=== PATIENT | male | born 1930 | race Caucasian/White ===

== ENCOUNTER → 2016-12-29 | Outpatient (CLI) | payer MEDICAID, MEDICARE ==
[2016-12-29 10:35] LABS: CH 30.2; CHCM 32.8; HCT 39.8 % (39.0-53.0); HDW 2.89; HGB 12.8 gm/dL (13.0-17.5); MCH 29.7 pg (25.0-35.0); MCHC 32.1 g/dL (31.0-37.0); MCV 92.5 fL (80.0-100.0); Mean Platelet Volume 7.4; RDW 13.7 % (11.5-15.5); WBC 9.7 k/uL (3.8-10.6)
[2016-12-29 10:49] LABS: Appearance,Urine Clear (Clear); Bilirubin,Urine Negative (Negative); Glucose,Urine (UA) Negative (Negative); Ketones,Urine Negative (Negative); Leukocyte Esterase,Urine Negative (Negative); Mucus,Urine Rare /hpf; Nitrite,Urine Negative (Negative); Particle Count 2384; Protein,Urine Negative (Negative); RBC,Urine 17 /hpf (0-5); Specific Gravity,Urine 1.015 (1.001-1.035); UA Billing (MACRO vs. MICRO) MICRO; Urobilinogen,Urine <2.0 mg/dL (<2.0); WBC,Urine 2 /hpf (0-5)
[2016-12-29 10:57] LABS: ALT 25 U/L (21-72); AST 20 U/L (17-59); Alkaline Phosphatase 54 U/L (38-126); Anion Gap 12 mmol/L; Blood Urea Nitrogen 22 mg/dL (9-20); Calcium 10.1 mg/dL (8.4-10.2); Carbon Dioxide 25 mmol/L (22-30); Chloride 104 mmol/L (98-107); Cholesterol 151 mg/dL (<200); Glucose 133 mg/dL (74-99); HDL Cholesterol 34 mg/dL (40-60); Non-African American GFR(MDRD) >60 (>60 ml/min/1.73 sqM); Potassium 4.2 mmol/L (3.5-5.1); Sodium 141 mmol/L (137-145); Total Bilirubin 0.8 mg/dL (0.2-1.3); Total Protein 7.2 g/dL (6.3-8.2); Triglycerides 171 mg/dL (<150)
[2016-12-29 11:28] LABS: Hemoglobin A1C 8.5 % (4.2-6.1)
[2016-12-29 11:30] LABS: Prostate Specific Antigen 0.78 ng/mL (0.00-4.00)
== END | disposition home or self-care (01) ==
LOC: LABWHC1 09:44
PROVIDERS: ATTEND Family Medicine
DX: Z00.00 Encounter for general adult medical examination without abnormal findings (principal)
CPT/HCPCS: 36415; 80053; 80061; 81001; 82306; 83036; 84153; 84443; 85027

== ENCOUNTER → 2016-12-31 | Outpatient (CLI) | payer MEDICAID, MEDICARE ==
[2016-12-31 14:07] LABS: Appearance,Urine Clear (Clear); Bilirubin,Urine Negative (Negative); Glucose,Urine (UA) 1+ (Negative); Ketones,Urine Negative (Negative); Leukocyte Esterase,Urine Negative (Negative); Nitrite,Urine Negative (Negative); Protein,Urine Negative (Negative); Specific Gravity,Urine 1.014 (1.001-1.035); UA Billing (MACRO vs. MICRO) CHEM
== END | disposition home or self-care (01) ==
LOC: LABPRL 13:44
PROVIDERS: ATTEND Family Medicine
DX: R31.9 Hematuria, unspecified (principal)
CPT/HCPCS: 81003

== ENCOUNTER → 2017-01-16 | Outpatient (CLI) | payer MEDICAID, MEDICARE ==
[2017-01-16 15:23] VITALS: BMI 26.4
== END | disposition home or self-care (01) ==
LOC: DBWHC3 12:07
PROVIDERS: ATTEND Family Medicine
DX: E11.65 Type 2 diabetes mellitus with hyperglycemia (principal)
CPT/HCPCS: G0108 ×3

== ENCOUNTER → 2017-03-23 | Outpatient (CLI) | payer MEDICAID, MEDICARE ==
[2017-03-23 13:11] LABS: CH 30.5; CHCM 33.2; HCT 38.8 % (39.0-53.0); HDW 2.72; HGB 12.8 gm/dL (13.0-17.5); MCH 30.4 pg (25.0-35.0); MCHC 32.9 g/dL (31.0-37.0); MCV 92.2 fL (80.0-100.0); Mean Platelet Volume 7.7; RBC 4.21 m/uL (4.30-5.90); RDW 14.6 % (11.5-15.5); WBC 7.2 k/uL (3.8-10.6)
[2017-03-23 13:26] LABS: ALT 22 U/L (21-72); AST 27 U/L (17-59); Anion Gap 9 mmol/L; Blood Urea Nitrogen 27 mg/dL (9-20); Calcium 9.5 mg/dL (8.4-10.2); Carbon Dioxide 25 mmol/L (22-30); Chloride 107 mmol/L (98-107); Cholesterol 150 mg/dL (<200); Glucose 242 mg/dL (74-99); HDL Cholesterol 43 mg/dL (40-60); Non-African American GFR(MDRD) >60 (>60 ml/min/1.73 sqM); Potassium 4.2 mmol/L (3.5-5.1); Sodium 141 mmol/L (137-145); Triglycerides 106 mg/dL (<150)
[2017-03-23 13:53] LABS: Hemoglobin A1C 7.9 % (4.2-6.1)
== END | disposition home or self-care (01) ==
LOC: LABWHC1 12:37
PROVIDERS: ATTEND Family Medicine
DX: Z00.00 Encounter for general adult medical examination without abnormal findings (principal)
CPT/HCPCS: 36415; 80048; 80061; 83036; 84450; 84460; 85027

== ENCOUNTER → 2017-06-26 | Outpatient (CLI) | payer MEDICAID, MEDICARE ==
[2017-06-26 14:49] LABS: ALT 36 U/L (21-72); AST 25 U/L (17-59); Anion Gap 11 mmol/L; Blood Urea Nitrogen 29 mg/dL (9-20); Calcium 9.6 mg/dL (8.4-10.2); Carbon Dioxide 23 mmol/L (22-30); Chloride 107 mmol/L (98-107); Glucose 174 mg/dL (74-99); Non-African American GFR(MDRD) >60 (>60 ml/min/1.73 sqM); Potassium 4.1 mmol/L (3.5-5.1); Sodium 141 mmol/L (137-145)
[2017-06-26 15:14] LABS: CH 31.7; CHCM 33.8; HDW 2.65; HGB 12.2 gm/dL (13.0-17.5); MCH 31.3 pg (25.0-35.0); MCHC 33.1 g/dL (31.0-37.0); MCV 94.4 fL (80.0-100.0); Mean Platelet Volume 8.3; RBC 3.91 m/uL (4.30-5.90); RDW 14.9 % (11.5-15.5); WBC 6.1 k/uL (3.8-10.6)
[2017-06-26 21:06] LABS: Hemoglobin A1C 7.3 % (4.2-6.1)
== END | disposition home or self-care (01) ==
LOC: LABWHC1 13:55
PROVIDERS: ATTEND Family Medicine
DX: E78.5 Hyperlipidemia, unspecified (principal); E11.65 Type 2 diabetes mellitus with hyperglycemia; E55.9 Vitamin D deficiency, unspecified; I10 Essential (primary) hypertension
CPT/HCPCS: 36415; 80048; 82306; 83036; 84450; 84460; 85027

== ENCOUNTER → 2017-07-03 | Outpatient (CLI) | payer MEDICAID, MEDICARE ==
[2017-07-03 10:27] LABS: CH 30.9; CHCM 33.9; HCT 35.4 % (39.0-53.0); HDW 2.72; HGB 12.4 gm/dL (13.0-17.5); MCV 91.5 fL (80.0-100.0); Mean Platelet Volume 7.4; RBC 3.87 m/uL (4.30-5.90); RDW 14.6 % (11.5-15.5); WBC 5.7 k/uL (3.8-10.6)
[2017-07-03 10:35] LABS: Iron 96 ug/dL (49-181)
[2017-07-03 10:44] LABS: Total Iron Binding Capacity 398 ug/dL (261-462)
== END | disposition home or self-care (01) ==
LOC: LABWHC1 09:53
PROVIDERS: ATTEND Family Medicine
DX: E11.65 Type 2 diabetes mellitus with hyperglycemia (principal); E78.5 Hyperlipidemia, unspecified; E55.9 Vitamin D deficiency, unspecified; I10 Essential (primary) hypertension; R89.9 Unspecified abnormal finding in specimens from other organs, systems and tissues
CPT/HCPCS: 36415; 82728; 83540; 83550; 85027

== ENCOUNTER 2017-08-28 22:21 | Emergency (ER) | payer MEDICAID, MEDICARE ==
--- NOTE | 2017-08-28 23:04 | ED ---
Abdominal Pain HPI - General Chief Complaint: Abdominal Pain Stated Complaint: Pain in side down groin Time Seen by Provider: 08/28/17 22:35 Source: patient Mode of arrival: ambulatory Limitations: no limitations - History of Present Illness Initial Comments: 87-year-old male patient presents to emergency department today with complaints of right-sided abdominal pain and right groin pain. She states that the pain started approximately a week ago, states it has been worsening over the last 2- 3 days. He states that the pain is constant. States that it hurts worse after he has been sitting upright for a long period. The pain is similar in intensity from the lower portion of his right ribs down into his groin. He denies any back pain, chest pain, shortness of breath, nausea, vomiting, dysuria , hematuria, urinary urgency, urinary frequency, constipation, or diarrhea. Denies any dark, bloody, or black stools. States that he does have a history significant for a hernia in his right inguinal region. He has not had problems with the site since the surgery. He does have a history of kidney stones. - Related Data Home Medications Medication Instructions Recorded Confirmed Fenofibrate [Lofibra] 160 mg PO HS 10/02/14 08/28/17 Lisinopril-Hctz 10-12.5 mg 1 tab PO DAILY 10/02/14 08/28/17 [Zestoretic 10-12.5] Simvastatin [Zocor] 40 mg PO HS 10/02/14 08/28/17 glyBURIDE/METFORMIN HCL 2 tab PO BID 10/02/14 08/28/17 [glyBURIDE/METFORMIN HCL 5-500 mg] Metoprolol Tartrate [Lopressor] 1 tab PO DAILY 01/16/17 08/28/17 Alfuzosin HCl [Alfuzosin HCl ER] 10 mg PO HS 03/30/17 08/28/17 Aspirin 81 mg PO DAILY 03/30/17 08/28/17 Insulin Glargine,Hum.rec.anlog 22 units SQ DAILY 03/30/17 08/28/17 [[place]ta Solostar] Albuterol Inhaler [Ventolin Hfa 1 - 2 puff INHALATION RT-QID PRN 08/28/17 Inhaler] [place]-3 Fatty Acids/Fish Oil [Fish 1 cap PO BID 08/28/17 08/28/17 Oil 1,000 mg Softgel] Previous Rx's Medication Instructions Recorded Hydrocodone/Acetaminophen [[place] 1 tab PO Q6HR PRN #15 tab 08/29/17 5-325] Tamsulosin HCl [Flomax] 0.4 mg PO DAILY #7 cap 08/29/17 Allergies Allergy/AdvReac Type Severity Reaction Status Date / Time No Known Allergies Allergy Verified 08/28/17 22:58 Review of Systems ROS Statement: Those systems with pertinent positive or pertinent negative responses have been documented in the HPI. ROS Other: All systems not noted in ROS Statement are negative. 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 History of Any Multi-Drug Resistant Organisms: None Reported Past Surgical History: Hernia Repair Past Anesthesia/Blood Transfusion Reactions: No Reported Reaction Past Psychological History: No Psychological Hx Reported Smoking Status: Former smoker - Past Family History Daughter(s) Family Medical History: No Reported History Mother Family Medical History: CVA/TIA Father Family Medical History: Myocardial Infarction ([place]) General Exam Limitations: no limitations General appearance: alert, in no apparent distress, other (This is a well- developed, well-nourished adult male patient in no acute distress. Vital signs upon presentation are temperature 100.1F, pulse 95, respirations 16, blood pressure 150/77, pulse ox 97% on room air.) Eye exam: Present: normal appearance, PERRL, EOMI. Absent: scleral icterus, conjunctival injection, periorbital swelling ENT exam: Present: normal exam, normal oropharynx, mucous membranes moist Respiratory exam: Present: normal lung sounds bilaterally. Absent: respiratory distress, wheezes, rales, rhonchi, stridor Cardiovascular Exam: Present: regular rate, normal rhythm, normal heart sounds. Absent: systolic murmur, diastolic murmur, rubs, gallop, clicks GI/Abdominal exam: Present: soft, normal bowel sounds. Absent: distended, tenderness, guarding, rebound, rigid exam: Present: normal inspection, testicular tenderness (Mild right testicular tenderness). Absent: urethral discharge, scrotal swelling Back exam: Present: normal inspection Neurological exam: Present: alert, oriented X3, CN II-XII intact Psychiatric exam: Present: normal affect, normal mood Skin exam: Present: warm, dry, intact, normal color. Absent: rash Course Vital Signs 08/28/17 08/29/17 08/29/17 22:28 00:14 01:08 Temperature 100.1 F H 97.8 F Pulse Rate 95 82 76 Respiratory 16 18 16 Rate Blood Pressure 150/77 159/77 168/84 O2 Sat by Pulse 97 95 96 Oximetry Medical Decision Making - Medical Decision Making 87-year-old male patient presents with right side pain that radiates into his right groin. Labs reviewed and did show a hemoglobin of 12.5, a BUN of 36, creatinine 1.6. Urinalysis did show trace urine protein, 3+ urine glucose, small blood, 7 red blood cells, rare mucous. Hemoglobin is chronic for the patient. Patient does also have chronic renal insufficiency however creatinine is mildly elevated from his usual. Patient was given a 500 mL fluid bolus. KUB of the abdomen was negative for any acute process. Chest x-ray did show mild right lower lobe infiltrate versus atelectasis. CT of the abdomen and pelvis without contrast did show a millimeter calculus at the ureterovesical junction on the right side, there is mild right-sided hydronephrosis and hydroureter. CT did show right lower lobe atelectasis, but no evidence of right lower lobe consolidation or pneumonia. V/S stable. Patient pain is under control at this time. He will be discharged home with Flomax and [place] for pain control. He is instructed to follow-up with urologist for recheck Thursday. He is instructed to return here immediately for any new, worsening, or concerning symptoms. Return parameters discussed in detail. Patient verbalizes understanding and agrees with this plan. - Lab Data Result diagrams: 08/28/17 23:12 08/28/17 23:12 Lab Results 08/28/17 08/28/17 08/28/17 Range/Units 23:12 23:12 23:12 WBC 7.3 (3.8-10.6) k/uL RBC 4.05 L (4.30-5.90) m/uL Hgb 12.5 L (13.0-17.5) gm/dL Hct 38.5 L (39.0-53.0) % MCV 95.0 (80.0-100.0) fL MCH 30.8 (25.0-35.0) pg MCHC 32.4 (31.0-37.0) g/dL RDW 14.9 (11.5-15.5) % Plt Count 203 (150-450) k/uL Neutrophils % 67 % Lymphocytes % 23 % Monocytes % 6 % Eosinophils % 3 % Basophils % 0 % Neutrophils # 4.9 (1.3-7.7) k/uL Lymphocytes # 1.6 (1.0-4.8) k/uL Monocytes # 0.4 (0-1.0) k/uL Eosinophils # 0.2 (0-0.7) k/uL Basophils # 0.0 (0-0.2) k/uL Sodium 138 (137-145) mmol/L Potassium 4.2 (3.5-5.1) mmol/L Chloride 105 (98-107) mmol/L Carbon Dioxide 22 (22-30) mmol/L Anion Gap 11 mmol/L BUN 36 H (9-20) mg/dL Creatinine 1.60 H (0.66-1.25) mg/dL Est GFR (MDRD) Af Amer 50 (>60 ml/min/1.73 sqM) Est GFR (MDRD) Non-Af 41 (>60 ml/min/1.73 sqM) Glucose 205 H (74-99) mg/dL Plasma Lactic Acid [place] 1.6 (0.7-2.0) mmol/L Calcium 9.9 (8.4-10.2) mg/dL Total Bilirubin 0.5 (0.2-1.3) mg/dL AST 25 (17-59) U/L ALT 29 (21-72) U/L Alkaline Phosphatase 57 (38-126) U/L Total Protein 6.6 (6.3-8.2) g/dL Albumin 3.5 (3.5-5.0) g/dL Amylase 41 (30-110) U/L Lipase 164 (23-300) U/L Urine Color Urine Appearance (Clear) Urine pH (5.0-8.0) Ur Specific [employer] [place] (1.001-1.035) Urine Protein (Negative) Urine Glucose (UA) (Negative) Urine Ketones (Negative) Urine Blood (Negative) Urine Nitrite (Negative) Urine Bilirubin (Negative) Urine Urobilinogen (<2.0) mg/dL Ur Leukocyte Esterase (Negative) Urine RBC (0-5) /hpf Urine WBC (0-5) /hpf Ur Squamous Epith Cells (0-4) /hpf Hyaline Casts (0-2) /lpf Urine Mucus (None) /hpf 08/28/17 Range/Units 23:34 WBC (3.8-10.6) k/uL RBC (4.30-5.90) m/uL Hgb (13.0-17.5) gm/dL Hct (39.0-53.0) % MCV (80.0-100.0) fL MCH (25.0-35.0) pg MCHC (31.0-37.0) g/dL RDW (11.5-15.5) % Plt Count (150-450) k/uL Neutrophils % % Lymphocytes % % Monocytes % % Eosinophils % % Basophils % % Neutrophils # (1.3-7.7) k/uL Lymphocytes # (1.0-4.8) k/uL Monocytes # (0-1.0) k/uL Eosinophils # (0-0.7) k/uL Basophils # (0-0.2) k/uL Sodium (137-145) mmol/L Potassium (3.5-5.1) mmol/L Chloride (98-107) mmol/L Carbon Dioxide (22-30) mmol/L Anion Gap mmol/L BUN (9-20) mg/dL Creatinine (0.66-1.25) mg/dL Est GFR (MDRD) Af Amer (>60 ml/min/1.73 sqM) Est GFR (MDRD) Non-Af (>60 ml/min/1.73 sqM) Glucose (74-99) mg/dL Plasma Lactic Acid [place] (0.7-2.0) mmol/L Calcium (8.4-10.2) mg/dL Total Bilirubin (0.2-1.3) mg/dL AST (17-59) U/L ALT (21-72) U/L Alkaline Phosphatase (38-126) U/L Total Protein (6.3-8.2) g/dL Albumin (3.5-5.0) g/dL Amylase (30-110) U/L Lipase (23-300) U/L Urine Color Yellow Urine Appearance Clear (Clear) Urine pH 7.0 (5.0-8.0) Ur Specific [employer] [place] 1.017 (1.001-1.035) Urine Protein Trace H (Negative) Urine Glucose (UA) 3+ H (Negative) Urine Ketones Negative (Negative) Urine Blood Small H (Negative) Urine Nitrite Negative (Negative) Urine Bilirubin Negative (Negative) Urine Urobilinogen 4.0 (<2.0) mg/dL Ur Leukocyte Esterase Negative (Negative) Urine RBC 7 H (0-5) /hpf Urine WBC 3 (0-5) /hpf Ur Squamous Epith Cells <1 (0-4) /hpf Hyaline Casts 1 (0-2) /lpf Urine Mucus Rare H (None) /hpf 08/29/17 00:26 EKG obtained at 2316 shows sinus rhythm, left axis deviation, incomplete left bundle branch block. Ventricular rate is 85, VT interval 154, QRS duration 114 , QT 366, QTC 435. No evidence of ST elevation or depression. 08/29/17 00:31 - Radiology Data Radiology results: report reviewed, image reviewed CT of the abdomen and pelvis without contrast, report was reviewed in its entirety. Impression by Dr. Oh shows obstructing calculus at the distal right ureter at the uterovesical junction. Right-sided hydronephrosis and hydroureter. Nonobstructing tiny left renal calculus. Mild subsegmental atelectasis at the right lung base and to a lesser extent the lingula left upper lobe. Atherosclerotic vascular disease. 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 There is possible calcific aortic stenosis. Two-view x-ray of the chest shows a heart and mediastinum are normal. There is linear density at the right lung base. There are no hilar masses. There is no evidence of pleural effusion. Bony thorax is intact. Impression by Dr. Ramirez shows mild linear infiltrate and atelectasis at the right lung base that is new compared to old exam. Normal heart. KUB x-ray of the abdomen shows no sign of intestinal obstruction or pneumoperitoneum. Fecal pattern is normal. There is no sign of a mass. There are no pathologic calcifications over the kidneys. There is increased density over the right lung base. Impression by Dr. Oh shows nonacute abdomen. Possible right lower lobe pneumonia. Disposition Clinical Impression: Kidney stone on right side, Hydronephrosis Disposition: HOME SELF-CARE Condition: Good Instructions: Kidney Stones (ED), How to Strain Your Urine (ED) Additional Instructions: Increase fluids. Take medications as directed. Follow-up with urologist as soon as possible. Return here immediately for any new, worsening, or concerning symptoms. Prescriptions: Hydrocodone/Acetaminophen [[place] 5-325] 1 tab PO Q6HR PRN #15 tab PRN Reason: Pain Tamsulosin HCl [Flomax] 0.4 mg PO DAILY #7 cap Referrals: Elgin Herrera DO [Primary Care Provider] - 1-2 days Silas Carlson MD [STAFF PHYSICIAN] - 1-2 days Time of Disposition: 01:13
[2017-08-28 23:28] LABS: Basophils % (A) 0 %; CH 32.3; CHCM 34.2; Eosinophils # (A) 0.2 k/uL (0-0.7); Eosinophils % (A) 3 %; HCT 38.5 % (39.0-53.0); HDW 2.59; HGB 12.5 gm/dL (13.0-17.5); Luc # (Auto) 0.09; Luc % (Auto) 1; Lymphocytes # (A) 1.6 k/uL (1.0-4.8); Lymphocytes % (A) 23 %; MCH 30.8 pg (25.0-35.0); MCHC 32.4 g/dL (31.0-37.0); Mean Platelet Volume 8.1; Monocytes # (A) 0.4 k/uL (0-1.0); Monocytes % (A) 6 %; Neutrophils # (A) 4.9 k/uL (1.3-7.7); Neutrophils % (A) 67 %; RBC 4.05 m/uL (4.30-5.90); RDW 14.9 % (11.5-15.5); WBC 7.3 k/uL (3.8-10.6); WBC (Perox) 7.84
--- NOTE | 2017-08-28 23:36 | XR ---
EXAMINATION TYPE: XR KUB DATE OF EXAM: 08/28/2017 COMPARISON: NONE HISTORY: Pain TECHNIQUE: 2 views FINDINGS: There is no sign of intestinal obstruction or pneumoperitoneum. Fecal pattern is normal. Th ere is no sign of a mass. There are no pathologic calcifications over the kidneys. There is increased density over the right lung base. IMPRESSION: Nonacute abdomen. Possible right lower lobe pneumonia.
[2017-08-28 23:46] LABS: Appearance,Urine Clear (Clear); Bilirubin,Urine Negative (Negative); Glucose,Urine (UA) 3+ (Negative); Ketones,Urine Negative (Negative); Leukocyte Esterase,Urine Negative (Negative); Mucus,Urine Rare /hpf; Nitrite,Urine Negative (Negative); Particle Count 1404; Protein,Urine Trace (Negative); RBC,Urine 7 /hpf (0-5); Specific Gravity,Urine 1.017 (1.001-1.035); Squamous Epithelial Cell,Urine <1 /hpf (0-4); UA Billing (MACRO vs. MICRO) MICRO; WBC,Urine 3 /hpf (0-5)
[2017-08-28 23:55] LABS: Calcium 9.9 mg/dL (8.4-10.2); Potassium 4.2 mmol/L (3.5-5.1); Total Bilirubin 0.5 mg/dL (0.2-1.3); Total Protein 6.6 g/dL (6.3-8.2)
[2017-08-29] MEDS ORDERED: SODIUM CHLORIDE 0.9% 500 ML IV STA (00:10)
--- NOTE | 2017-08-29 00:28 | XR ---
EXAMINATION TYPE: XR chest 2V DATE OF EXAM: 08/29/2017 COMPARISON: 08/11/2015 HISTORY: Chest pain TECHNIQUE: Frontal and lateral views of the chest are obtained. FINDINGS: Heart and mediastinum are normal. There is linear density at the right lung base. There ar e no hilar masses. There is no evidence of pleural effusion. Bony thorax is intact. IMPRESSION: There is mild linear infiltrate and atelectasis at the right lung base that is new ruth ann red to old exam. Normal heart.
--- NOTE | 2017-08-29 00:50 | CT ---
EXAMINATION TYPE: CT abdomen pelvis wo con DATE OF EXAM: 08/29/2017 COMPARISON: NONE HISTORY: right abd into groin pain, hx of hernia surgery, no prior CT DLP: 763.20 mGycm Automated exposure control for dose reduction was used. TECHNIQUE: Helical acquisition of images was performed from the lung bases through the pelvis. FINDINGS: Lung bases are clear of consolidation. There is no pleural effusion. Heart size is fairly normal. The re is coronary artery calcification. There is interposition of the hepatic flexure of the colon which is a normal variant. There is no foc al liver defect. Spleen appears normal. There is no pancreatic mass. Gallbladder appears normal. Bile ducts are not dilated. There is no adrenal mass. Kidneys have fairly normal size. There is mild right-sided hydronephrosis a nd hydroureter. There is a 5 mm calculus at the ureterovesical junction on the right side. There is r ight-sided perinephric edema. There is a 1 mm calculus in the lower pole left kidney. There is no retroperitoneal adenopathy. There is no ascites. Bladder distends smoothly. There is no s ign of a pelvic mass. There are spondylotic changes in the lumbar spine. There are some calcification s at the root of the aortic valve. I see no intestinal wall thickening. There are no dilated loops. There are multiple sigmoid diverticu la. IMPRESSION: THERE IS OBSTRUCTING CALCULUS AT THE DISTAL RIGHT URETER AT THE URETEROVESICAL JUNCTION. RIGHT-SIDED HYDRONEPHROSIS AND HYDROURETER. NONOBSTRUCTING TINY LEFT RENAL CALCULUS. MILD SUBSEGMENTAL ATELECTASIS AT THE RIGHT LUNG BASE AND TO A LESSER EXTENT THE LINGULA LEFT UPPER LO BE. ATHEROSCLEROTIC VASCULAR DISEASE. 4.7 CM ANEURYSM OF THE ASCENDING AORTA NOTED. THERE IS POSSIBLE LOU CIFIC AORTIC STENOSIS.
[2017-08-29 01:08] VITALS: BP 168/84; PULSE 76; RESP 16; TEMP 97.8
[2017-08-29] MEDS ORDERED: ACET/COD 300 MG/30 MG STARTER PACK 6 TAB BTL PO STA (01:10)
[2017-08-29] MEDS ORDERED: TAMSULOSIN 0.4 MG CAP.ER.24H PO STA (01:10)
== END 2017-08-29 01:33 | disposition home or self-care (01) ==
LOC: EC 22:21
DX: N13.2 Hydronephrosis with renal and ureteral calculous obstruction (principal); E11.9 Type 2 diabetes mellitus without complications; I10 Essential (primary) hypertension; E78.5 Hyperlipidemia, unspecified; Z98.890 Other specified postprocedural states; Z79.4 Long term (current) use of insulin; Z79.82 Long term (current) use of aspirin; Z79.899 Other long term (current) drug therapy; Z87.891 Personal history of nicotine dependence
CPT/HCPCS: 36415; 71020; 74000; 74176; 80053; 81001; 82150; 83605; 83690; 85025; 87040; 93005; 96360; 99284

== ENCOUNTER 2017-10-03 19:27 | Emergency (ER) | payer MEDICAID, MEDICARE ==
--- NOTE | 2017-10-03 20:15 | ED ---
General Adult HPI - General Source: patient, family, police, RN notes reviewed, old records reviewed Mode of arrival: ambulatory Limitations: no limitations <Eduardo Ledesma - Last Filed: 10/04/17 01:02> <Radha Rouse - Last Filed: 10/04/17 02:02> - General Chief complaint: Psychiatric Symptoms Stated complaint: Mental Health Time Seen by Provider: 10/03/17 19:50 - History of Present Illness Initial comments: Chief complaint history of present illness this 89-year-old male brought emergency room and petition by the Quality Assurance Monitor [employer]. The patient was noticed walking down a dark road. He had fallen once was helped up by some passerby. [facility]' s Department was called. The Quality Assurance Monitor Chassis states he found the gentleman walking down the street without going in any particular direction. He is 87 years old he is a 62-year-old told him to get out of the house. The patient reports he had no place to go but is been walking until he . (Eduardo Ledesma) - Related Data Home Medications Medication Instructions Recorded Confirmed Fenofibrate [Lofibra] 160 mg PO HS 10/02/14 10/03/17 Lisinopril-Hctz 10-12.5 mg 1 tab PO DAILY 10/02/14 10/03/17 [Zestoretic 10-12.5] Simvastatin [Zocor] 40 mg PO HS 10/02/14 10/03/17 glyBURIDE/METFORMIN HCL 2 tab PO BID 10/02/14 10/03/17 [glyBURIDE/METFORMIN HCL 5-500 mg] Metoprolol Tartrate [Lopressor] 25 mg PO BID 01/16/17 10/03/17 Alfuzosin HCl [Alfuzosin HCl ER] 10 mg PO HS 03/30/17 10/03/17 Aspirin 81 mg PO DAILY 03/30/17 10/03/17 Insulin Glargine,Hum.rec.anlog 11 units SQ DAILY 03/30/17 10/03/17 [[place] Solostar] Albuterol Inhaler [Ventolin Hfa 1 - 2 puff INHALATION RT-QID PRN 08/28/17 Inhaler] [place]-3 Fatty Acids/Fish Oil [Fish 1 cap PO BID 08/28/17 10/03/17 Oil 1,000 mg Softgel] Previous Rx's Medication Instructions Recorded Tamsulosin HCl [Flomax] 0.4 mg PO DAILY #7 cap 08/29/17 Allergies Allergy/AdvReac Type Severity Reaction Status Date / Time No Known Allergies Allergy Verified 10/03/17 19:41 Review of Systems ROS Other: All systems not noted in ROS Statement are negative. <Eduardo Ledesma - Last Filed: 10/04/17 01:02> ROS Other: All systems not noted in ROS Statement are negative. <Radha Rouse - Last Filed: 10/04/17 02:02> ROS Statement: Those systems with pertinent positive or pertinent negative responses have been documented in the HPI. review of systems. Currently the patient does not have any headache no visual acuity changes no chest pain shortness breath GI/ problems. He does report that he is depressed because of the circumstances and situation he does have a daughter lives nearby but he says he cannot go with her. He cannot go home because he was told to leave. He has not have the wherewithal to start or live elsewhere. All systems are reviewed Past medical problems significant for kidney stone one month ago. Insulin- dependent diabetes mellitus, hyperlipidemia, hypertension and glaucoma. Surgeries hernia repair. family history no cancers. Patient denies any ALLERGIES. He quit smoking 37 years ago, denies alcohol use. 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 History of Any Multi-Drug Resistant Organisms: None Reported Past Surgical History: Hernia Repair Past Anesthesia/Blood Transfusion Reactions: No Reported Reaction Past Psychological History: No Psychological Hx Reported Smoking Status: Former smoker Past Alcohol Use History: None Reported Past Drug Use History: None Reported - Past Family History Daughter(s) Family Medical History: No Reported History Mother Family Medical History: CVA/TIA Father Family Medical History: Myocardial Infarction ([place]) <Eduardo Ledesma - Last Filed: 10/04/17 01:02> General Exam Limitations: no limitations <Eduardo Ledesma - Last Filed: 10/04/17 01:02> <Radha Rouse - Last Filed: 10/04/17 02:02> - General Exam Comments Initial Comments: General: The patient is awake and alert, appears depressed and admits that he has nowhere to go and was given a walker until he . Vital signs temperature 98.6 pulse 120 respiratory rate 20 pulse ox 97% room air blood pressure 165/77 Eye: Pupils are equal, round and reactive to light, extra-ocular movements are intact ; there is normal conjunctiva bilaterally. No signs of icterus. history of glaucoma Ears, nose, mouth and throat: There are moist mucous membranes . Neck: The neck is supple, there is no tenderness . Cardiovascular: tachycardic heart rate 120.. No murmur, rub or gallop is appreciated. Respiratory: Lungs are clear to auscultation, respirations are non-labored, breath sounds are equal. No wheezes, stridor, rales, or rhonchi. Gastrointestinal: Soft, non-distended, non-tender abdomen without masses or organomegaly noted. There is no rebound or guarding present. No CVA tenderness. Bowel sounds are unremarkable. Back: There is no tenderness to palpation in the midline. Musculoskeletal: Normal ROM, no tenderness, There is no pedal edema. There is no calf tenderness or swelling. Sensation intact. Neurological: CN II-XII intact, There are no obvious motor or sensory deficits. Coordination appears grossly intact. Speech is normal.no focal or lateralizing findings Skin: Skin is warm and dry and no rashes or lesions are noted. Psychiatric: Cooperative, depressed mood, states he was thinking about stepping in front of a car, or just walking until he . (Eduardo Ledesma) Course <Eduardo Ledesma - Last Filed: 10/04/17 01:02> <Radha Rouse - Last Filed: 10/04/17 02:02> Vital Signs 10/03/17 10/03/17 10/03/17 19:28 21:15 22:00 Temperature 98.6 F Pulse Rate 120 H Respiratory 20 16 16 Rate Blood Pressure 165/77 O2 Sat by Pulse 97 Oximetry 10/03/17 22:31 Temperature 98.7 F Pulse Rate 93 Respiratory 14 Rate Blood Pressure 148/82 O2 Sat by Pulse 94 L Oximetry Eosinophils evaluated by department psychiatry they are comfortable sending him home, his his agrees to come pick him up and patient will follow-up outpatient (Radha Rouse) EKG Findings - EKG Comments: EKG Findings:: EKG was done and reviewed at 2255 showing sinus rhythm with PVCs. Left axis deviation nonspecific T-wave changes. Rate 98 CT interval is 160 QRS 112 QT 366 [address]Tc 467. No acute ST elevation. <Eduardo Ledesma - Last Filed: 10/04/17 01:02> Medical Decision Making - Lab Data Result diagrams: 10/03/17 20:10 10/03/17 20:10 <BaltazarEduardo gee - Last Filed: 10/04/17 01:02> - Lab Data Result diagrams: 10/03/17 20:10 10/03/17 20:10 <NasimRadha - Last Filed: 10/04/17 02:02> - Medical Decision Making medical decision-making. Patient's here because he was found walking several miles from his home. He is depressed. He's to be evaluated by the EPS nurse. Vital signs were recorded. Labs show white count 9.3 hemoglobin 12 medical 37, Potassium 3.9 BUN 31 creatinine 1.2 GFR 58. Glucose 254. Urine clean no signs of infection no drugs. Awaiting EPS nurse to speak with psychiatrist and possibly with the patient's and/or daughter. Final disposition will be determined at that time. (Eduardo Ledesma) - Lab Data Lab Results 10/03/17 10/03/17 10/03/17 Range/Units 20:10 20:10 21:00 WBC 9.3 (3.8-10.6) k/uL RBC 4.04 L (4.30-5.90) m/uL Hgb 12.3 L (13.0-17.5) gm/dL Hct 37.0 L (39.0-53.0) % MCV 91.4 (80.0-100.0) fL MCH 30.3 (25.0-35.0) pg MCHC 33.1 (31.0-37.0) g/dL RDW 15.0 (11.5-15.5) % Plt Count 209 (150-450) k/uL Neutrophils % 83 % Lymphocytes % 12 % Monocytes % 5 % Eosinophils % 0 % Basophils % 0 % Neutrophils # 7.7 (1.3-7.7) k/uL Lymphocytes # 1.1 (1.0-4.8) k/uL Monocytes # 0.4 (0-1.0) k/uL Eosinophils # 0.0 (0-0.7) k/uL Basophils # 0.0 (0-0.2) k/uL Sodium 140 (137-145) mmol/L Potassium 3.9 (3.5-5.1) mmol/L Chloride 108 H (98-107) mmol/L Carbon Dioxide 20 L (22-30) mmol/L Anion Gap 12 mmol/L BUN 31 H (9-20) mg/dL Creatinine 1.20 (0.66-1.25) mg/dL Est GFR (MDRD) Af Amer >60 (>60 ml/min/1.73 sqM) Est GFR (MDRD) Non-Af 58 (>60 ml/min/1.73 sqM) Glucose 254 H (74-99) mg/dL Calcium 10.0 (8.4-10.2) mg/dL Urine Color Yellow Urine Appearance Clear (Clear) Urine pH 5.0 (5.0-8.0) Ur Specific [place] 1.016 (1.001-1.035) Urine Protein Trace H (Negative) Urine Glucose (UA) 4+ H (Negative) Urine Ketones 1+ H (Negative) Urine Blood Negative (Negative) Urine Nitrite Negative (Negative) Urine Bilirubin Negative (Negative) Urine Urobilinogen 2.0 (<2.0) mg/dL Ur Leukocyte Esterase Negative (Negative) Salicylates <1.0 mg/dL Urine Opiates Screen Not Detected (NotDetected) Ur Oxycodone Screen Not Detected (NotDetected) Urine Methadone Screen Not Detected (NotDetected) Ur Propoxyphene Screen Not Detected (NotDetected) Acetaminophen <10.0 ug/mL Ur Barbiturates Screen Not Detected (NotDetected) U Tricyclic Antidepress Not Detected (NotDetected) Ur Phencyclidine Scrn Not Detected (NotDetected) Ur Amphetamines Screen Not Detected (NotDetected) U Methamphetamines Scrn Not Detected (NotDetected) U Benzodiazepines Scrn Not Detected (NotDetected) Urine Cocaine Screen Not Detected (NotDetected) U Marijuana (THC) Screen Not Detected (NotDetected) Disposition <Eduardo Ledesma - Last Filed: 10/04/17 01:02> <Radha Rouse - Last Filed: 10/04/17 02:02> Clinical Impression: Confusion Disposition: HOME SELF-CARE Condition: Good Referrals: Elgin Herrera DO [Primary Care Provider] - 1-2 days
[2017-10-03 20:30] LABS: Basophils % (A) 0 %; CH 30.3; CHCM 33.3; Eosinophils % (A) 0 %; HDW 2.56; HGB 12.3 gm/dL (13.0-17.5); Luc # (Auto) 0.05; Luc % (Auto) 1; Lymphocytes # (A) 1.1 k/uL (1.0-4.8); Lymphocytes % (A) 12 %; MCH 30.3 pg (25.0-35.0); MCHC 33.1 g/dL (31.0-37.0); MCV 91.4 fL (80.0-100.0); Mean Platelet Volume 8.2; Monocytes # (A) 0.4 k/uL (0-1.0); Monocytes % (A) 5 %; Neutrophils # (A) 7.7 k/uL (1.3-7.7); Neutrophils % (A) 83 %; RBC 4.04 m/uL (4.30-5.90); WBC 9.3 k/uL (3.8-10.6)
[2017-10-03 20:32] LABS: Acetaminophen <10.0 ug/mL; Anion Gap 12 mmol/L; Blood Urea Nitrogen 31 mg/dL (9-20); Carbon Dioxide 20 mmol/L (22-30); Chloride 108 mmol/L (98-107); Glucose 254 mg/dL (74-99); Non-African American GFR(MDRD) 58 (>60 ml/min/1.73 sqM); Potassium 3.9 mmol/L (3.5-5.1); Salicylate <1.0 mg/dL; Sodium 140 mmol/L (137-145)
[2017-10-03 21:13] LABS: Appearance,Urine Clear (Clear); Bilirubin,Urine Negative (Negative); Glucose,Urine (UA) 4+ (Negative); Ketones,Urine 1+ (Negative); Leukocyte Esterase,Urine Negative (Negative); Nitrite,Urine Negative (Negative); Protein,Urine Trace (Negative); Specific Gravity,Urine 1.016 (1.001-1.035); UA Billing (MACRO vs. MICRO) CHEM
[2017-10-03 22:35] VITALS: BP 148/82; PULSE 93; RESP 14; TEMP 98.7
== END 2017-10-04 02:32 | disposition home or self-care (01) ==
LOC: EC 19:27
DX: R41.0 Disorientation, unspecified (principal); E11.9 Type 2 diabetes mellitus without complications; E78.5 Hyperlipidemia, unspecified; I10 Essential (primary) hypertension; Z87.891 Personal history of nicotine dependence; Z79.4 Long term (current) use of insulin; Z79.82 Long term (current) use of aspirin; Z79.899 Other long term (current) drug therapy
CPT/HCPCS: 36415; 80048; 80306; 81003; 82075; 83520; 85025; 93005; 99285

== ENCOUNTER → 2017-10-27 | Outpatient (CLI) | payer MEDICAID, MEDICARE ==
[2017-10-27 12:55] LABS: CHCM 32.6; HCT 36.9 % (39.0-53.0); HDW 2.63; HGB 11.9 gm/dL (13.0-17.5); MCH 30.8 pg (25.0-35.0); MCHC 32.3 g/dL (31.0-37.0); MCV 95.6 fL (80.0-100.0); Mean Platelet Volume 8.6; RBC 3.86 m/uL (4.30-5.90); RDW 15.2 % (11.5-15.5); WBC 6.8 k/uL (3.8-10.6)
[2017-10-27 20:30] LABS: Iron Saturation 24.06 (15.00-50.00)
== END | disposition home or self-care (01) ==
LOC: LABWHC1 12:23
PROVIDERS: ATTEND Family Medicine
DX: R89.9 Unspecified abnormal finding in specimens from other organs, systems and tissues (principal)
CPT/HCPCS: 36415; 82728; 83540; 83550; 85027

== ENCOUNTER → 2018-01-19 | Outpatient (CLI) | payer MEDICAID, MEDICARE ==
[2018-01-19 10:14] LABS: HGB 12.9 gm/dL (13.0-17.5); MCH 30.5 pg (25.0-35.0); MCV 89.5 fL (80.0-100.0); Mean Platelet Volume 7.5; Platelet Count 238 k/uL (150-450); RBC 4.24 m/uL (4.30-5.90); RDW 13.5 % (11.5-15.5); WBC 8.3 k/uL (3.8-10.6)
[2018-01-19 11:32] LABS: Calcium 10.4 mg/dL (8.4-10.2); Potassium 3.9 mmol/L (3.5-5.1)
[2018-01-19 12:00] LABS: Prostate Specific Antigen 0.83 ng/mL (0.00-4.00)
[2018-01-19 19:43] LABS: Hemoglobin A1C 8.5 % (4.0-6.0)
== END | disposition home or self-care (01) ==
LOC: LABWHC1 08:44
PROVIDERS: ATTEND Family Medicine
DX: E11.65 Type 2 diabetes mellitus with hyperglycemia (principal); I10 Essential (primary) hypertension; E78.2 Mixed hyperlipidemia; N40.1 Benign prostatic hyperplasia with lower urinary tract symptoms
CPT/HCPCS: 36415; 80048; 80061; 83036; 84153; 84450; 84460; 85027

== ENCOUNTER 2018-08-11 23:49 | Emergency (ER) | payer MEDICAID, MEDICARE ==
[2018-08-12 00:11] VITALS: BP 122/66; PULSE 84; RESP 18; TEMP 98.5
[2018-08-12 00:19] LABS: Glucose,Whole Blood 292 mg/dL (75-99)
--- NOTE | 2018-08-12 01:14 | ED ---
Recheck HPI - General Chief Complaint: Recheck/Abnormal Lab/Rx Stated Complaint: Hyperglycemia Time Seen by Provider: 08/12/18 00:25 Source: patient Mode of arrival: ambulatory Limitations: no limitations - History of Present Illness Initial Comments: 88-year-old female patient presents to the emergency department today for evaluation of elevated blood glucose. Patient states that he is currently taking steroids after having an ALLERGIC reaction. States that he does have a history of diabetes mellitus this is making his sugars more elevated than usual. Patient states at home his blood glucose monitor read 360. Patient presented here for evaluation. Family and patient reports that once arriving he did realize he forgot his nightly dose of insulin. Patient is currently denying any symptoms. States that he feels normal. Denies any nausea, vomiting , dizziness, weakness, palpitations, fever, or chills. Patient denies any recent rash, shortness breath, chest pain, abdominal pain, diarrhea, constipation, back pain, numbness, tingling, hematuria, dysuria, urinary urgency , urinary frequency, headache, visual changes, or any other complaints. - Related Data Home Medications Medication Instructions Recorded Confirmed Fenofibrate [Lofibra] 160 mg PO HS 10/02/14 10/03/17 Lisinopril-Hctz 10-12.5 mg 1 tab PO DAILY 10/02/14 10/03/17 [Zestoretic 10-12.5] Simvastatin [Zocor] 40 mg PO HS 10/02/14 10/03/17 glyBURIDE/METFORMIN HCL 2 tab PO BID 10/02/14 10/03/17 [glyBURIDE/METFORMIN HCL 5-500 mg] Metoprolol Tartrate [Lopressor] 25 mg PO BID 01/16/17 10/03/17 Alfuzosin HCl [Alfuzosin HCl ER] 10 mg PO HS 03/30/17 10/03/17 Aspirin 81 mg PO DAILY 03/30/17 10/03/17 Insulin Glargine,Hum.rec.anlog 11 units SQ DAILY 03/30/17 10/03/17 [Yonathan Aguileraostkarlene] Albuterol Inhaler [Ventolin Hfa 1 - 2 puff INHALATION RT-QID PRN 08/28/17 Inhaler] [place]-3 Fatty Acids/Fish Oil [Fish 1 cap PO BID 08/28/17 10/03/17 Oil 1,000 mg Softgel] Previous Rx's Medication Instructions Recorded Tamsulosin HCl [Flomax] 0.4 mg PO DAILY #7 cap 08/29/17 Allergies Allergy/AdvReac Type Severity Reaction Status Date / Time No Known Allergies Allergy Verified 08/12/18 00:11 Review of Systems ROS Statement: Those systems with pertinent positive or pertinent negative responses have been documented in the HPI. ROS Other: All systems not noted in ROS Statement are negative. 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 History of Any Multi-Drug Resistant Organisms: None Reported Past Surgical History: Hernia Repair Past Anesthesia/Blood Transfusion Reactions: No Reported Reaction Past Psychological History: No Psychological Hx Reported Smoking Status: Former smoker Past Alcohol Use History: None Reported Past Drug Use History: None Reported - Past Family History Daughter(s) Family Medical History: No Reported History Mother Family Medical History: CVA/TIA Father Family Medical History: Myocardial Infarction ([place]) General Exam Limitations: no limitations General appearance: alert, in no apparent distress, other (This is a well- developed, well-nourished elderly male patient in no acute distress. Vital signs upon presentation are temperature 98.5F, pulse 84, respirations 18, blood pressure 122/66, pulse ox 97% on room air.) Eye exam: Present: PERRL, EOMI, other (Patient has mild periorbital swelling and erythema. He does have green drainage from bilateral eyes.). Absent: normal appearance, scleral icterus, conjunctival injection, periorbital swelling Respiratory exam: Present: normal lung sounds bilaterally. Absent: respiratory distress, wheezes, rales, rhonchi, stridor Cardiovascular Exam: Present: regular rate, normal rhythm, normal heart sounds. Absent: systolic murmur, diastolic murmur, rubs, gallop, clicks GI/Abdominal exam: Present: soft, normal bowel sounds. Absent: distended, tenderness, guarding, rebound, rigid Neurological exam: Present: alert, oriented X3, CN II-XII intact Psychiatric exam: Present: normal affect, normal mood Skin exam: Present: warm, dry, intact, normal color. Absent: rash Course Vital Signs 08/12/18 08/12/18 00:08 01:19 Temperature 98.5 F Pulse Rate 84 Respiratory 18 18 Rate Blood Pressure 122/66 O2 Sat by Pulse 97 Oximetry Medical Decision Making - Medical Decision Making 88-year-old male patient presents to the emergency department today for complaints of elevated blood sugar. Patient denied any current symptoms or concerns. Did realize she forgot to take his nightly dose of insulin at home. Physical examination is unremarkable. Patient is alert and oriented. Daughter is at bedside. I did offer to provide insulin coverage here in the emergency department. Patient refused stating he would rather take his own when he gets home. Patient's eyes are being treated by his primary care physician currently with steroids and intraocular medication. He does feel comfortable continuing his primary care physician providers treatment plan. He'll be discharged home in stable condition. Return parameters were discussed in detail. He verbalizes understanding and agrees with this plan. - Lab Data Lab Results 08/12/18 Range/Units 00:17 POC Glucose (mg/dL) 292 H (75-99) mg/dL POC Glu Director [employer] ID Sherry Mojica Disposition Clinical Impression: Hyperglycemia Disposition: HOME SELF-CARE Condition: Good Instructions: Diabetic Hyperglycemia (ED) Additional Instructions: Take your home medication for sugar reduction. Follow-up with your primary care physician for recheck in 1-2 days. Return here immediately for any new, worsening, or concerning symptoms. Is patient prescribed a controlled substance at d/c from ED?: No Referrals: Elgin Herrera DO [Primary Care Provider] - 1-2 days Time of Disposition: 01:14
== END 2018-08-12 01:20 | disposition home or self-care (01) ==
LOC: EC 23:49
DX: E11.65 Type 2 diabetes mellitus with hyperglycemia (principal); E78.5 Hyperlipidemia, unspecified; I10 Essential (primary) hypertension; Z87.891 Personal history of nicotine dependence; Z53.29 Procedure and treatment not carried out because of patient's decision for other reasons; Z79.82 Long term (current) use of aspirin; Z79.4 Long term (current) use of insulin; Z79.899 Other long term (current) drug therapy
CPT/HCPCS: 36415; 99283

== ENCOUNTER → 2018-08-25 | Outpatient (CLI) | payer MEDICAID, MEDICARE ==
[2018-08-25 11:08] LABS: HCT 35.6 % (39.0-53.0); HGB 11.5 gm/dL (13.0-17.5); MCH 30.2 pg (25.0-35.0); MCHC 32.4 g/dL (31.0-37.0); MCV 93.2 fL (80.0-100.0); Mean Platelet Volume 7.4; Platelet Count 256 k/uL (150-450); RBC 3.82 m/uL (4.30-5.90); RDW 13.7 % (11.5-15.5); WBC 8.8 k/uL (3.8-10.6)
[2018-08-25 11:12] LABS: Calcium 9.6 mg/dL (8.4-10.2); Potassium 4.2 mmol/L (3.5-5.1)
== END | disposition home or self-care (01) ==
LOC: LABWHC1 09:13
PROVIDERS: ATTEND Family Medicine
DX: E11.65 Type 2 diabetes mellitus with hyperglycemia (principal); E78.5 Hyperlipidemia, unspecified; I10 Essential (primary) hypertension
CPT/HCPCS: 36415; 80048; 80061; 83036; 84450; 84460; 85027

== ENCOUNTER → 2019-01-28 | Outpatient (CLI) | payer MEDICAID, MEDICARE ==
[2019-01-28 13:27] LABS: HCT 37.7 % (39.0-53.0); MCH 29.2 pg (25.0-35.0); MCHC 31.7 g/dL (31.0-37.0); MCV 92.1 fL (80.0-100.0); Mean Platelet Volume 6.7; Platelet Count 217 k/uL (150-450); RDW 14.6 % (11.5-15.5); WBC 6.5 k/uL (3.8-10.6)
[2019-01-28 19:55] LABS: Anion Gap 5.4 mmol/L (4.00-12.00); Calcium 9.8 mg/dL (8.7-10.3); Carbon Dioxide 28.6 mmol/L (21.6-31.8)
[2019-01-28 23:56] LABS: Hemoglobin A1C 8.5 % (4.0-6.0)
== END ==
LOC: LABWHC1 12:01
PROVIDERS: ATTEND Family Medicine
DX: I10 Essential (primary) hypertension (principal); E11.65 Type 2 diabetes mellitus with hyperglycemia; E78.5 Hyperlipidemia, unspecified
CPT/HCPCS: 36415; 80048; 83036; 84450; 84460; 85027

== ENCOUNTER → 2019-02-12 | Outpatient (CLI) | payer MEDICAID, MEDICARE ==
[2019-02-12 11:00] LABS: HCT 36.8 % (39.0-53.0); HGB 12.3 gm/dL (13.0-17.5); MCH 29.8 pg (25.0-35.0); MCHC 33.5 g/dL (31.0-37.0); MCV 88.9 fL (80.0-100.0); Mean Platelet Volume 8.4; Platelet Count 230 k/uL (150-450); RBC 4.14 m/uL (4.30-5.90); RDW 14.9 % (11.5-15.5); WBC 6.2 k/uL (3.8-10.6)
[2019-02-12 16:56] LABS: Anion Gap 7.7 mmol/L (4.00-12.00); Calcium 9.8 mg/dL (8.7-10.3); Carbon Dioxide 27.3 mmol/L (21.6-31.8)
[2019-02-12 21:21] LABS: Hemoglobin A1C 8.3 % (4.0-6.0)
== END ==
LOC: LABWHC1 10:42
PROVIDERS: ATTEND Family Medicine
DX: E11.65 Type 2 diabetes mellitus with hyperglycemia (principal); E78.5 Hyperlipidemia, unspecified; I10 Essential (primary) hypertension; R89.9 Unspecified abnormal finding in specimens from other organs, systems and tissues
CPT/HCPCS: 36415; 80048; 83036; 84450; 84460; 85027

== ENCOUNTER → 2019-05-05 | Outpatient (CLI) | payer MEDICARE, MEDICAID ==
[2019-05-05 09:57] LABS: Basophils % (A) 0 %; Eosinophils # (A) 0.2 k/uL (0-0.7); Eosinophils % (A) 3 %; HCT 37.3 % (39.0-53.0); HGB 12.1 gm/dL (13.0-17.5); Lymphocytes # (A) 1.2 k/uL (1.0-4.8); Lymphocytes % (A) 22 %; MCHC 32.4 g/dL (31.0-37.0); MCV 92.5 fL (80.0-100.0); Mean Platelet Volume 8.3; Monocytes # (A) 0.4 k/uL (0-1.0); Monocytes % (A) 6 %; Neutrophils # (A) 3.7 k/uL (1.3-7.7); Neutrophils % (A) 66 %; Platelet Count 184 k/uL (150-450); RBC 4.04 m/uL (4.30-5.90); RDW 15.7 % (11.5-15.5); WBC 5.6 k/uL (3.8-10.6)
[2019-05-05 16:35] LABS: African American GFR (CKD) 56.9 (60.0-200.0); Albumin 4.1 g/dL (3.80-4.90); Albumin/Globulin Ratio 1.78 (1.60-3.17); BUN/Creat Ratio 19.23 Ratio (12.00-20.00); Calcium 10.1 mg/dL (8.7-10.3); Globulin 2.3 g/dL (1.6-3.3); LDL Cholesterol,Calculated 89.2 mg/dL (0.0-131.0); Potassium 3.9 mmol/L (3.5-5.5); Total Bilirubin 0.4 mg/dL (0.2-1.2); Total Protein 6.4 g/dL (6.2-8.2); VLDL Calculation 27.8 mg/dL (5.00-40.00)
[2019-05-05 17:41] LABS: Hemoglobin A1C 8.4 % (4.0-6.0)
== END | disposition home or self-care (01) ==
LOC: LABWHC1 09:09
PROVIDERS: ATTEND Family Medicine
DX: I10 Essential (primary) hypertension (principal); E11.65 Type 2 diabetes mellitus with hyperglycemia; E78.5 Hyperlipidemia, unspecified; E55.9 Vitamin D deficiency, unspecified
CPT/HCPCS: 36415; 80053; 80061; 82306; 83036; 85025

== ENCOUNTER 2019-07-03 23:08 | Emergency (ER) | payer MEDICAID, MEDICARE ==
[2019-07-03 23:14] VITALS: BP 175/83; PULSE 73; RESP 16; TEMP 97.8
[2019-07-03] MEDS ORDERED: MECLIZINE 12.5 MG TAB PO STA (23:49)
--- NOTE | 2019-07-03 23:51 | ED ---
Dizziness HPI - General Chief Complaint: Syncope Stated Complaint: Does not feel right Time Seen by Provider: 07/03/19 23:15 Source: patient Mode of arrival: wheelchair Limitations: no limitations - History of Present Illness Initial Comments: This patient is an 89-year-old man who presents with approximate 20 hours of a vertiginous symptoms. Patient states that he had gotten up to use the bathroom last night approximately 3am and noticed that it felt like everything was spinning. He was also experiencing nausea. Patient states that he thought th ings would improve but they continued every time he would get up he would find that he was expressing spinning. The symptoms are better when he remains still. As the symptoms continued tonight he felt he should be evaluated. MD Complaint: other Onset/Timin -: hour(s) Timing: sudden onset Description: "room spinning", difficulty walking History of Same: No History of Trauma: No Severity: severe Improves With: remaining still Worsens With: movement Associated Symptoms: other - Related Data Home Medications Medication Instructions Recorded Confirmed Fenofibrate [Lofibra] 160 mg PO HS 10/02/14 10/03/17 Lisinopril-Hctz 10-12.5 mg 1 tab PO DAILY 10/02/14 10/03/17 [Zestoretic 10-12.5] Simvastatin [Zocor] 40 mg PO HS 10/02/14 10/03/17 glyBURIDE/METFORMIN HCL 2 tab PO BID 10/02/14 10/03/17 [Glucovance 5-500 mg] Metoprolol Tartrate [Lopressor] 25 mg PO BID 01/16/17 10/03/17 Alfuzosin HCl [Alfuzosin HCl ER] 10 mg PO HS 03/30/17 10/03/17 Aspirin 81 mg PO DAILY 03/30/17 10/03/17 Insulin Glargine,Hum.rec.anlog 11 units SQ DAILY 03/30/17 10/03/17 [Toujeo Solostar] Albuterol Inhaler [Ventolin Hfa 1 - 2 puff INHALATION RT-QID PRN 08/28/17 10/03/17 Inhaler] [place]-3 Fatty Acids/Fish Oil [Fish 1 cap PO BID 08/28/17 10/03/17 Oil 1,000 mg Softgel] Previous Rx's Medication Instructions Recorded Tamsulosin HCl [Flomax] 0.4 mg PO DAILY #7 cap 08/29/17 Meclizine [Antivert] 25 mg PO TID PRN #15 tab 07/04/19 Allergies Allergy/AdvReac Type Severity Reaction Status Date / Time No Known Allergies Allergy Verified 07/03/19 23:14 Review of Systems ROS Statement: Those systems with pertinent positive or pertinent negative responses have been documented in the HPI. ROS Other: All systems not noted in ROS Statement are negative. Constitutional: Denies: fever, chills, weakness Eyes: Denies: vision change ENT: Denies: ear pain, hearing loss Respiratory: Denies: cough, dyspnea Cardiovascular: Denies: chest pain, palpitations Gastrointestinal: Reports: nausea, vomiting. 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 History of Any Multi-Drug Resistant Organisms: None Reported Past Surgical History: Hernia Repair Past Anesthesia/Blood Transfusion Reactions: No Reported Reaction Past Psychological History: No Psychological Hx Reported Smoking Status: Former smoker Past Alcohol Use History: None Reported Past Drug Use History: None Reported - Past Family History Daughter(s) Family Medical History: No Reported History Mother Family Medical History: CVA/TIA Father Family Medical History: Myocardial Infarction ([place]) General Exam Limitations: no limitations General appearance: alert, in no apparent distress Head exam: Present: atraumatic, normocephalic Eye exam: Present: normal appearance, PERRL, EOMI, nystagmus. Absent: scleral icterus, conjunctival injection ENT exam: Present: normal oropharynx Neck exam: Present: normal inspection, full ROM Respiratory exam: Present: normal lung sounds bilaterally. Absent: respiratory distress, wheezes, rales, rhonchi, stridor Cardiovascular Exam: Present: regular rate, normal rhythm, normal heart sounds. Absent: systolic murmur, diastolic murmur, rubs, gallop GI/Abdominal exam: Present: soft. Absent: distended, tenderness, guarding, rebound, rigid, mass Extremities exam: Present: normal inspection, normal capillary refill. Absent: pedal edema, calf tenderness Back exam: Present: normal inspection Neurological exam: Present: alert, oriented X3, CN II-XII intact. Absent: motor sensory deficit Skin exam: Present: warm, dry, intact, normal color. Absent: rash Course Vital Signs 07/03/19 23:11 Temperature 97.8 F Pulse Rate 73 Respiratory 16 Rate Blood Pressure 175/83 O2 Sat by Pulse 97 Oximetry EKG Findings - EKG Results: EKG: interpreted by LUZ MARIA, sinus rhythm (Rate 74 bpm), normal ST/T - Blocks, [place], Hypertrophy, ST Abn: AV and intraventricular conduction: intraventricular conduction delay QRS axis and voltage: left axis deviation (-30 to -90) Medical Decision Making - Medical Decision Making Patient is an 89-year-old man presenting with classic vertiginous symptoms. Workup here is negative and he is feeling better after having meclizine. I did discuss admission with the patient for telemetry monitoring and serial cardiac enzymes but he is declining to have this stating that he does feel much better. We discussed return parameters as well as having close follow-up. - Lab Data Result diagrams: 07/03/19 23:49 07/03/19 23:49 Lab Results 07/03/19 07/03/19 07/03/19 Range/Units 23:49 23:49 23:49 WBC 6.3 (3.8-10.6) k/uL RBC 3.87 L (4.30-5.90) m/uL Hgb 11.7 L (13.0-17.5) gm/dL Hct 35.6 L (39.0-53.0) % MCV 91.9 (80.0-100.0) fL MCH 30.2 (25.0-35.0) pg MCHC 32.9 (31.0-37.0) g/dL RDW 14.6 (11.5-15.5) % Plt Count 186 (150-450) k/uL Neutrophils % 71 % Lymphocytes % 20 % Monocytes % 6 % Eosinophils % 2 % Basophils % 0 % Neutrophils # 4.5 (1.3-7.7) k/uL Lymphocytes # 1.2 (1.0-4.8) k/uL Monocytes # 0.4 (0-1.0) k/uL Eosinophils # 0.1 (0-0.7) k/uL Basophils # 0.0 (0-0.2) k/uL PT 10.4 (9.0-12.0) sec INR 1.0 (<1.2) APTT 23.5 (22.0-30.0) sec Sodium 140 (137-145) mmol/L Potassium 3.7 (3.5-5.1) mmol/L Chloride 106 (98-107) mmol/L Carbon Dioxide 27 (22-30) mmol/L Anion Gap 7 mmol/L BUN 23 H (9-20) mg/dL Creatinine 1.13 (0.66-1.25) mg/dL Est GFR (CKD-EPI)AfAm 68 (>60 ml/min/1.73 sqM) Est GFR (CKD-EPI)NonAf 58 (>60 ml/min/1.73 sqM) Glucose 257 H (74-99) mg/dL Calcium 9.7 (8.4-10.2) mg/dL Total Bilirubin 0.4 (0.2-1.3) mg/dL AST 24 (17-59) U/L ALT 20 L (21-72) U/L Alkaline Phosphatase 57 (38-126) U/L Troponin I (0.000-0.034) ng/mL Total Protein 7.1 (6.3-8.2) g/dL Albumin 3.9 (3.5-5.0) g/dL Urine Color Urine Appearance (Clear) Urine pH (5.0-8.0) Ur Specific [place] (1.001-1.035) Urine Protein (Negative) Urine Glucose (UA) (Negative) Urine Ketones (Negative) Urine Blood (Negative) Urine Nitrite (Negative) Urine Bilirubin (Negative) Urine Urobilinogen (<2.0) mg/dL Ur Leukocyte Esterase (Negative) 07/03/19 07/04/19 Range/Units 23:49 01:42 WBC (3.8-10.6) k/uL RBC (4.30-5.90) m/uL Hgb (13.0-17.5) gm/dL Hct (39.0-53.0) % MCV (80.0-100.0) fL MCH (25.0-35.0) pg MCHC (31.0-37.0) g/dL RDW (11.5-15.5) % Plt Count (150-450) k/uL Neutrophils % % Lymphocytes % % Monocytes % % Eosinophils % % Basophils % % Neutrophils # (1.3-7.7) k/uL Lymphocytes # (1.0-4.8) k/uL Monocytes # (0-1.0) k/uL Eosinophils # (0-0.7) k/uL Basophils # (0-0.2) k/uL PT (9.0-12.0) sec INR (<1.2) APTT (22.0-30.0) sec Sodium (137-145) mmol/L Potassium (3.5-5.1) mmol/L Chloride (98-107) mmol/L Carbon Dioxide (22-30) mmol/L Anion Gap mmol/L BUN (9-20) mg/dL Creatinine (0.66-1.25) mg/dL Est GFR (CKD-EPI)AfAm (>60 ml/min/1.73 sqM) Est GFR (CKD-EPI)NonAf (>60 ml/min/1.73 sqM) Glucose (74-99) mg/dL Calcium (8.4-10.2) mg/dL Total Bilirubin (0.2-1.3) mg/dL AST (17-59) U/L ALT (21-72) U/L Alkaline Phosphatase (38-126) U/L Troponin I <0.012 (0.000-0.034) ng/mL Total Protein (6.3-8.2) g/dL Albumin (3.5-5.0) g/dL Urine Color Yellow Urine Appearance Clear (Clear) Urine pH 6.0 (5.0-8.0) Ur Specific [place] 1.024 (1.001-1.035) Urine Protein Trace H (Negative) Urine Glucose (UA) 4+ H (Negative) Urine Ketones Negative (Negative) Urine Blood Negative (Negative) Urine Nitrite Negative (Negative) Urine Bilirubin Negative (Negative) Urine Urobilinogen <2.0 (<2.0) mg/dL Ur Leukocyte Esterase Negative (Negative) Disposition Clinical Impression: Vertigo Disposition: HOME SELF-CARE Condition: Good Instructions (If sedation given, give patient instructions): Vertigo (ED) Prescriptions: Meclizine [Antivert] 25 mg PO TID PRN #15 tab PRN Reason: Vertigo Is patient prescribed a controlled substance at d/c from ED?: No Referrals: Elgin Herrera DO [Primary Care Provider] - 1-2 days
[2019-07-04 00:02] LABS: Basophils % (A) 0 %; Eosinophils # (A) 0.1 k/uL (0-0.7); Eosinophils % (A) 2 %; HCT 35.6 % (39.0-53.0); HGB 11.7 gm/dL (13.0-17.5); Lymphocytes # (A) 1.2 k/uL (1.0-4.8); Lymphocytes % (A) 20 %; MCH 30.2 pg (25.0-35.0); MCHC 32.9 g/dL (31.0-37.0); MCV 91.9 fL (80.0-100.0); Monocytes # (A) 0.4 k/uL (0-1.0); Monocytes % (A) 6 %; Neutrophils # (A) 4.5 k/uL (1.3-7.7); Neutrophils % (A) 71 %; Platelet Count 186 k/uL (150-450); RBC 3.87 m/uL (4.30-5.90); RDW 14.6 % (11.5-15.5); WBC 6.3 k/uL (3.8-10.6)
[2019-07-04 00:14] LABS: Partial Thromboplastin Time 23.5 sec (22.0-30.0); Prothrombin Time 10.4 sec (9.0-12.0)
[2019-07-04 00:20] LABS: Albumin 3.9 g/dL (3.5-5.0); Calcium 9.7 mg/dL (8.4-10.2); Potassium 3.7 mmol/L (3.5-5.1); Total Bilirubin 0.4 mg/dL (0.2-1.3); Total Protein 7.1 g/dL (6.3-8.2)
--- NOTE | 2019-07-04 00:52 | CT ---
EXAM: CT Head Without Intravenous Contrast CLINICAL HISTORY: ITS.REASON CT Reason: vertigo TECHNIQUE: Axial computed tomography images of the head/brain without intravenous contrast. CTDI is 49.1 mGy and DLP is 1103.4 mGy-cm. This CT exam was performed using one or more of the following dose reduction techniques: automated exposure control, adjustment of the mA and/or kV according to patient size, and/or use of iterative reconstruction technique. COMPARISON: 10/02/14. FINDINGS: Brain: No intracranial hemorrhage or mass effect. No clear acute large vessel territorial infarct. Mild involutional and microvascular ischemic changes Ventricles: Unremarkable. No ventriculomegaly. Bones/joints: Unremarkable. No acute fracture. Soft tissues: Unremarkable. Sinuses: Minimal mucosal thickening in multiple sinuses. Mastoid air cells: Unremarkable as visualized. No mastoid effusion. IMPRESSION: No acute intracranial process.
--- NOTE | 2019-07-04 01:10 | XR ---
EXAM: XR Chest, 2 Views CLINICAL HISTORY: ITS.REASON XR Reason: vertigo TECHNIQUE: Frontal and lateral views of the chest. COMPARISON: 08/29/17. FINDINGS: Lungs: Discoid atelectasis again noted at the left base. Pleural space: Persistent elevation of the right hemidiaphragm. No clear effusion. No pneumothorax. Heart: No cardiomegaly. Mediastinum: Aortic calcification. Bones/joints: Unremarkable. IMPRESSION: No evidence of acute pulmonary disease. Persistent discoid left base atelectasis. Stable right hemidiaphragmatic elevation.
[2019-07-04 01:56] LABS: Appearance,Urine Clear (Clear); Bilirubin,Urine Negative (Negative); Blood,Urine Negative (Negative); Color,Urine Yellow; Glucose,Urine (UA) 4+ (Negative); Ketones,Urine Negative (Negative); Leukocyte Esterase,Urine Negative (Negative); Nitrite,Urine Negative (Negative); Protein,Urine Trace (Negative); Specific Gravity,Urine 1.024 (1.001-1.035); Urobilinogen,Urine <2.0 mg/dL (<2.0)
== END 2019-07-04 02:53 | disposition home or self-care (01) ==
LOC: EC 23:08
DX: H55.00 Unspecified nystagmus (principal); R26.2 Difficulty in walking, not elsewhere classified; R11.0 Nausea; E11.9 Type 2 diabetes mellitus without complications; E78.5 Hyperlipidemia, unspecified; I10 Essential (primary) hypertension; Z87.891 Personal history of nicotine dependence; Z79.4 Long term (current) use of insulin; Z79.82 Long term (current) use of aspirin; Z79.899 Other long term (current) drug therapy; Z82.3 Family history of stroke; Z53.29 Procedure and treatment not carried out because of patient's decision for other reasons
CPT/HCPCS: 36415; 70450; 71046; 80053; 81003; 84484; 85025; 85610; 85730; 93005; 99284

== ENCOUNTER → 2019-08-05 | Outpatient (CLI) | payer MEDICAID, MEDICARE ==
[2019-08-05 13:56] LABS: HCT 33.1 % (39.0-53.0); HGB 11.6 gm/dL (13.0-17.5); MCH 31.5 pg (25.0-35.0); Mean Platelet Volume 7.2; Platelet Count 189 k/uL (150-450); RBC 3.68 m/uL (4.30-5.90); RDW 14.7 % (11.5-15.5); WBC 6.1 k/uL (3.8-10.6)
[2019-08-05 19:09] LABS: African American GFR (CKD) 56.9 (60.0-200.0); Anion Gap 7.6 mmol/L (4.00-12.00); BUN/Creat Ratio 22.31 Ratio (12.00-20.00); Calcium 10.1 mg/dL (8.7-10.3); Carbon Dioxide 27.4 mmol/L (21.6-31.8); Potassium 4.1 mmol/L (3.5-5.5)
[2019-08-05 21:13] LABS: Hemoglobin A1C 7.4 % (4.0-6.0)
== END | disposition home or self-care (01) ==
LOC: LABWHC1 13:17
PROVIDERS: ATTEND Family Medicine
DX: E11.65 Type 2 diabetes mellitus with hyperglycemia (principal); I10 Essential (primary) hypertension
CPT/HCPCS: 36415; 80048; 83036; 84450; 84460; 85027

== ENCOUNTER → 2019-08-20 | Outpatient (CLI) | payer MEDICAID, MEDICARE ==
[2019-08-20 12:17] LABS: HCT 36.2 % (39.0-53.0); MCH 31.4 pg (25.0-35.0); MCHC 33.2 g/dL (31.0-37.0); MCV 94.4 fL (80.0-100.0); Platelet Count 193 k/uL (150-450); RBC 3.83 m/uL (4.30-5.90); RDW 14.8 % (11.5-15.5)
[2019-08-20 16:49] LABS: African American GFR (CKD) 56.9 (60.0-200.0); Anion Gap 9.5 mmol/L (4.00-12.00); BUN/Creat Ratio 16.92 Ratio (12.00-20.00); Calcium 9.7 mg/dL (8.7-10.3); Carbon Dioxide 26.5 mmol/L (21.6-31.8); Potassium 3.7 mmol/L (3.5-5.5)
[2019-08-20 23:33] LABS: Iron Saturation 25.57 (15.00-50.00)
== END | disposition home or self-care (01) ==
LOC: LABWHC1 11:32
PROVIDERS: ATTEND Family Medicine
DX: D64.9 Anemia, unspecified (principal); E11.65 Type 2 diabetes mellitus with hyperglycemia; I10 Essential (primary) hypertension; R94.4 Abnormal results of kidney function studies
CPT/HCPCS: 36415; 80048; 82728; 83540; 83550; 84450; 84460; 85027

== ENCOUNTER 2019-08-31 11:01 | Day surgery (SDC) | payer MEDICAID, MEDICARE ==
[2019-08-22 12:44] VITALS: BMI 28.0
[~2019-08-31 11:01] MED LIST: DEXAMETHASONE SOD PHOSPHATE 10 MG/ML 1 ML VIAL IV ONE; DEXAMETHASONE SOD PHOSPHATE 4 MG/ML 1 ML VIAL IV ONE; FAMOTIDINE 20 MG/2 ML VIAL IV ONE; HYDROmorphone 0.5 MG/0.5 ML SYRINGE IVP PRN; LACTATED RINGERS 1,000 ML IV SCH; LIDOCAINE 1% 20 ML VIAL (10MG/ML) FOR IV START INTRADERMA PRN; MIDAZOLAM 2 MG/2 ML VIAL IV PRN; ONDANSETRON 4 MG/2 ML VIAL IVP ONE; OXYMETAZOLINE 0.05% NASL SPRAY 1 SPRAY BOTTLE NASAL ONE; SCOPOLAMINE 1.5MG/72HR PATCH TRANSDERM ONE
[2019-08-31 11:49] VITALS: RESP 16; TEMP 98.2
[2019-08-31 12:07] LABS: Glucose,Whole Blood 68 mg/dL (75-99)
[2019-08-31] MEDS ORDERED: DEXTROSE 10 % IN WATER 250 ML IV ONE (12:30)
[2019-08-31 13:04] LABS: Glucose,Whole Blood 167 mg/dL (75-99)
[2019-08-31] MEDS ORDERED: diphenhydrAMINE 50 MG/ML 1 ML VIAL ONE (13:09)
[2019-08-31] MEDS ORDERED: MIDAZOLAM 2 MG/2 ML VIAL ONE (13:09)
[2019-08-31] MEDS ORDERED: fentaNYL (PF) 50 MCG/ML 2 ML AMP ONE (13:09)
[2019-08-31] MEDS ORDERED: PROPOFOL 10 MG/ML 20 ML VIAL IV ONE (13:09)
[2019-08-31] MEDS ORDERED: LIDOCAINE 1%-EPI 1:100,000 20 ML VIAL SQ ONE ×2 (13:33)
[2019-08-31] MEDS ORDERED: BACITRACIN 500 UNIT/GM OINT 28.4 GM TUBE TOPICAL ONE ×2 (13:35→14:01)
--- NOTE | 2019-08-31 14:23 | P.OP ---
Date of Procedure: 08/31/19 Preoperative Diagnosis: Right ear skin lesion Postoperative Diagnosis: Same Procedure(s) Performed: Wedge excision right ear lesion with complex closure 5.2 cm Anesthesia: PEACE NASH Surgeon: Barrington Cardoza Estimated Blood Loss (ml): 3 Pathology: other (Right ear lesion) Condition: stable Disposition: PACU Indications for Procedure: This is a 89-year-old white male with a progressively enlarging right ear lesion Operative Findings: Exophytic but raw skin lesion right helical rim. Negative margin on frozen section Description of Procedure: The patient was brought in the operative suite and placed in a supine position. Patient underwent induction of IV sedation by the breakfast bar attendant after appropriate monitors were placed. The patient was prepped and draped in usual aseptic fashion. 1% lidocaine with 1-100,000 epinephrine was infused subcutaneously and field block fashion. This was left to work for 7 minutes vasoconstrictive effect. A wedge excision was then performed which was through and through and sent for frozen section. The margins returned as negative. The hemostasis was gained with electrocautery. The wound was then closed in numerous layers. Initially the cartilage was closed with 4-0 Vicryl suture. The subcutaneous layers superficial and deep were closed with inverted interrupted 5-0 Vicryl suture and skin was then closed with running locking 5-0 Prolene suture. Bacitracin ointment and sterile dressings were placed. The patient was then allowed to emerge from anesthesia having tolerated procedure well and was transferred postoperative recovery area in satisfactory condition.
[2019-08-31 15:25] VITALS: BP 136/74; PULSE 68
== END 2019-08-31 15:43 | disposition home or self-care (01) ==
LOC: OR 11:01
PROVIDERS: ATTEND Otolaryngology
DX: C44.212 Basal cell carcinoma of skin of right ear and external auricular canal (principal); E11.9 Type 2 diabetes mellitus without complications; M19.90 Unspecified osteoarthritis, unspecified site; H91.90 Unspecified hearing loss, unspecified ear; E78.00 Pure hypercholesterolemia, unspecified; R42 Dizziness and giddiness; I10 Essential (primary) hypertension; E78.5 Hyperlipidemia, unspecified; J44.9 Chronic obstructive pulmonary disease, unspecified; Z98.890 Other specified postprocedural states; Z79.899 Other long term (current) drug therapy; Z79.82 Long term (current) use of aspirin; Z79.4 Long term (current) use of insulin; Z87.891 Personal history of nicotine dependence; Z97.2 Presence of dental prosthetic device (complete) (partial); Z82.49 Family history of ischemic heart disease and other diseases of the circulatory system; Z83.42 Family history of familial hypercholesterolemia
CPT/HCPCS: 69100; 13152; 88305; 88331; J2250; J1200; J1100; J2405; J0690; J3010; J2704

== ENCOUNTER 2019-12-28 15:14 | Emergency (ER) | payer MEDICAID, MEDICARE ==
--- NOTE | 2019-12-28 15:51 | ED ---
Male Urogenital HPI - General Chief complaint: Urogenital Stated complaint: Unable to void Time Seen by Provider: 12/28/19 15:34 Source: patient Mode of arrival: wheelchair Limitations: no limitations - History of Present Illness Initial comments: 89 yo male presenting today for cc of urinary retention, patient states he has not been able to urinate very much throughout the day. Patient states he feels like he is retaining urine patient denies any abdominal pain dysuria or hematuria but admits to urgency and frequency. Patient states he is often going to the bathroom Tonight patient is unsure if he has prostate disease. Patient denies experiencing this in the past patient denies any back pain because of the lower extremities or loss of sensation. Patient denies any other complaints upon arrival patient appears well signs acute distress - Related Data Home Medications Medication Instructions Recorded Confirmed Fenofibrate [Lofibra] 160 mg PO HS 10/02/14 08/31/19 Lisinopril-Hctz 10-12.5 mg 1 tab PO DAILY 10/02/14 08/31/19 [Zestoretic 10-12.5] Simvastatin [Zocor] 40 mg PO HS 10/02/14 08/31/19 glyBURIDE/METFORMIN HCL 3 tab PO QAM 10/02/14 08/22/19 [Glucovance 5-500 mg] Aspirin 81 mg PO DAILY 03/30/17 08/31/19 Alfuzosin HCl [Alfuzosin HCl ER] 10 mg PO DAILY 08/22/19 08/31/19 Insulin Glargine,Hum.rec.anlog 20 units SQ DAILY 08/22/19 08/31/19 [Toujeo Solostar] Pioglitazone [Actos] 15 mg PO DAILY 08/22/19 08/31/19 Previous Rx's Medication Instructions Recorded Meclizine [Antivert] 25 mg PO TID PRN #15 tab 07/04/19 Allergies Allergy/AdvReac Type Severity Reaction Status Date / Time No Known Allergies Allergy Verified 12/28/19 15:30 Review of Systems ROS Statement: Those systems with pertinent positive or pertinent negative responses have been documented in the HPI. ROS Other: All systems not noted in ROS Statement are negative. Past Medical History Past Medical History: Diabetes Mellitus, Hyperlipidemia, Hypertension Additional Past Medical History / Comment(s): glaucoma. vertigo History of Any Multi-Drug Resistant Organisms: None Reported Past Surgical History: Hernia Repair Past Anesthesia/Blood Transfusion Reactions: Motion Sickness Additional Past Anesthesia/Blood Transfusion Reaction / Comment(s): vertigo Past Psychological History: No Psychological Hx Reported Smoking Status: Former smoker Past Alcohol Use History: None Reported Past Drug Use History: None Reported - Past Family History Daughter(s) Family Medical History: No Reported History Mother Family Medical History: CVA/TIA Father Family Medical History: Myocardial Infarction ([place]) General Exam - General Exam Comments Initial Comments: General: The patient is awake and alert, in no distress, and does not appear acutely ill. Eye: +3 mm pupils are equal, round and reactive to light, extra-ocular movements are intact. No nystagmus. There is normal conjunctiva bilaterally. No signs of icterus. Cardiovascular: There is a regular rate and rhythm. No murmur, rub or gallop is appreciated. Respiratory: Lungs are clear to auscultation, respirations are non-labored, breath sounds are equal. No wheezes, stridor, rales, or rhonchi. Gastrointestinal: Soft, non-distended, non-tender abdomen without masses or organomegaly noted. There is no rebound or guarding present. Musculoskeletal: Normal ROM, no tenderness. Strength 5/5. Sensation intact. Radial pulses equal bilaterally 2+. Neurological: A&O x 3. CN II-XII intact grossly, There are no obvious motor or sensory deficits. Coordination appears grossly intact. Speech is normal. Skin: Skin is warm and dry and no rashes or lesions are noted. Psychiatric: Cooperative, appropriate mood & affect, normal judgment. Limitations: no limitations Course Vital Signs 12/28/19 12/28/19 15:28 18:08 Temperature 98.2 F 98.1 F Pulse Rate 86 83 Respiratory 20 18 Rate Blood Pressure 148/78 167/92 O2 Sat by Pulse 99 97 Oximetry Medical Decision Making - Medical Decision Making 89-year-old male presenting for urinary retention x 1 day. trouble starting stream chronic. Post residual void 147ml, patient was catheterized at this time as I feel this is concerning for urinary retention. Patient had 300 in the Palmer catheter after discussing the findings attending providers recommended indwelling Palmer with urology follow-up. Patient denies abdominal pain. Patient has no other complaints urinalysis unremarkable. No hematuria at this time feel patient is stable for discharge with recheck in 2-3 days to attempt for catheter removal by urology or primary care provider. I recommend patient to be evaluated by urology. Patient was discharged appearing well - Lab Data Lab Results 12/28/19 Range/Units 16:41 Urine Color Yellow Urine Appearance Clear (Clear) Urine pH 6.0 (5.0-8.0) Ur Specific [place] 1.020 (1.001-1.035) Urine Protein Negative (Negative) Urine Glucose (UA) Negative (Negative) Urine Ketones Negative (Negative) Urine Blood Negative (Negative) Urine Nitrite Negative (Negative) Urine Bilirubin Negative (Negative) Urine Urobilinogen 2.0 (<2.0) mg/dL Ur Leukocyte Esterase Negative (Negative) Urine RBC 1 (0-5) /hpf Urine WBC 1 (0-5) /hpf Disposition Clinical Impression: Urinary retention Disposition: HOME SELF-CARE Condition: Good Instructions (If sedation given, give patient instructions): Urinary Retention in Men (ED), Enlarged Prostate (BPH) (ED) Additional Instructions: Please use medication as discussed. Please follow-up with family doctor in the next 2 days, as well as urology, reevaluation must occur in next 2-3 days in order to evaluate for palmer removal. Please return to emergency room if the symptoms increase or worsen or for any other concerns. Is patient prescribed a controlled substance at d/c from ED?: No Referrals: Elgin Herrera DO [Primary Care Provider] - 1-2 days Trever Douglas MD [STAFF PHYSICIAN] - 1-2 days Time of Disposition: 17:29
[2019-12-28 16:55] LABS: RBC,Urine 1 /hpf (0-5); WBC,Urine 1 /hpf (0-5)
[2019-12-28 16:57] LABS: Appearance,Urine Clear (Clear); Color,Urine Yellow; Glucose,Urine (UA) Negative (Negative); Protein,Urine Negative (Negative)
[2019-12-28 16:58] LABS: Bilirubin,Urine Negative (Negative); Blood,Urine Negative (Negative); Ketones,Urine Negative (Negative); Leukocyte Esterase,Urine Negative (Negative); Nitrite,Urine Negative (Negative)
[2019-12-28 18:11] VITALS: BP 167/92; PULSE 83; RESP 18; TEMP 98.1
== END 2019-12-28 18:08 | disposition home or self-care (01) ==
LOC: EC 15:14
DX: R33.9 Retention of urine, unspecified (principal); R39.15 Urgency of urination; E11.9 Type 2 diabetes mellitus without complications; E78.5 Hyperlipidemia, unspecified; I10 Essential (primary) hypertension; H40.9 Unspecified glaucoma; Z79.82 Long term (current) use of aspirin; Z79.4 Long term (current) use of insulin; Z79.899 Other long term (current) drug therapy; Z87.891 Personal history of nicotine dependence
CPT/HCPCS: 51702; 51798; 81003; 99284

== ENCOUNTER → 2020-02-10 | Outpatient (CLI) | payer MEDICAID, MEDICARE ==
[2020-02-10 10:59] LABS: HCT 33.7 % (39.0-53.0); HGB 10.7 gm/dL (13.0-17.5); MCH 30.7 pg (25.0-35.0); MCHC 31.9 g/dL (31.0-37.0); MCV 96.2 fL (80.0-100.0); Platelet Count 200 k/uL (150-450); RBC 3.51 m/uL (4.30-5.90); RDW 15.6 % (11.5-15.5); WBC 5.4 k/uL (3.8-10.6)
[2020-02-10 15:43] LABS: African American GFR (CKD) 69.1 (60.0-200.0); Anion Gap 8.1 mmol/L (4.00-12.00); BUN/Creat Ratio 27.27 Ratio (12.00-20.00); Calcium 9.1 mg/dL (8.7-10.3); Carbon Dioxide 24.9 mmol/L (21.6-31.8); Non-African American GFR(CKD) 59.6 (60.0-200.0); Potassium 3.9 mmol/L (3.5-5.5)
== END | disposition home or self-care (01) ==
LOC: LABWHC1 10:18
PROVIDERS: ATTEND Family Medicine
DX: E11.65 Type 2 diabetes mellitus with hyperglycemia (principal); I10 Essential (primary) hypertension; E55.9 Vitamin D deficiency, unspecified
CPT/HCPCS: 36415; 80048; 82306; 83036; 84450; 84460; 85027

== ENCOUNTER → 2020-06-27 | Outpatient (CLI) | payer MEDICAID, MEDICARE ==
[2020-06-27 15:29] LABS: HCT 34.3 % (39.0-53.0); HGB 11.3 gm/dL (13.0-17.5); MCH 31.6 pg (25.0-35.0); MCHC 32.9 g/dL (31.0-37.0); Mean Platelet Volume 8.2; Platelet Count 181 k/uL (150-450); RBC 3.57 m/uL (4.30-5.90); RDW 14.1 % (11.5-15.5); WBC 5.8 k/uL (3.8-10.6)
[2020-06-28 01:29] LABS: Hemoglobin A1C 8.2 % (4.0-6.0)
[2020-06-28 02:22] LABS: African American GFR (CKD) 62.2 (60.0-200.0); BUN/Creat Ratio 23.33 Ratio (12.00-20.00); Calcium 9.6 mg/dL (8.7-10.3); Non-African American GFR(CKD) 53.7 (60.0-200.0); Potassium 4.1 mmol/L (3.5-5.5)
== END | disposition home or self-care (01) ==
LOC: LABWHC1 14:33
PROVIDERS: ATTEND Family Medicine
DX: E11.65 Type 2 diabetes mellitus with hyperglycemia (principal); E55.9 Vitamin D deficiency, unspecified; E78.5 Hyperlipidemia, unspecified; I12.9 Hypertensive chronic kidney disease with stage 1 through stage 4 chronic kidney disease, or unspecified chronic kidney disease; N18.3 Chronic kidney disease, stage 3 (moderate)
CPT/HCPCS: 36415; 80048; 82306; 83036; 84450; 84460; 85027

== ENCOUNTER → 2021-05-29 | Outpatient (CLI) | payer MEDICAID, MEDICARE ==
[2021-05-29 22:49] LABS: Basophils # (A) 0.02 X 10*3/uL (0.00-0.10); Basophils % (A) 0.4 %; Eosinophils # (A) 0.18 X 10*3/uL (0.04-0.35); Eosinophils % (A) 3.5 %; HCT 34.5 % (39.6-50.0); HGB 11.6 g/dL (13.0-17.0); Lymphocytes # (A) 1.65 X 10*3/uL (0.90-5.00); Lymphocytes % (A) 32.2 %; MCH 32.2 pg (27.0-32.0); MCHC 33.6 g/dL (32.0-37.0); MCV 95.8 fL (80.0-97.0); Mean Platelet Volume 11.8 fL (9.5-12.2); Monocytes # (A) 0.45 X 10*3/uL (0.20-1.00); Monocytes % (A) 8.8 %; Neutrophils # (A) 2.81 X 10*3/uL (1.80-7.70); Neutrophils % (A) 54.7 %; Platelet Count 176 X 10*3/uL (140-440); RDW 15.6 % (11.5-14.5); WBC 5.13 X 10*3/uL (4.50-10.00)
[2021-05-30 00:51] LABS: Hemoglobin A1C 7.3 % (4.0-6.0)
[2021-05-30 03:54] LABS: African American GFR (CKD) 61.8 (60.0-200.0); Albumin 3.9 g/dL (3.80-4.90); Albumin/Globulin Ratio 1.26 (1.60-3.17); Anion Gap 6.3 mmol/L (4.00-12.00); BUN/Creat Ratio 22.5 Ratio (12.00-20.00); Calcium 9.4 mg/dL (8.7-10.3); Carbon Dioxide 27.7 mmol/L (21.6-31.8); Chol/HDL Ratio 3.57; Globulin 3.1 g/dL (1.6-3.3); LDL Cholesterol,Calculated 72.6 mg/dL (0.0-131.0); Non-African American GFR(CKD) 53.3 (60.0-200.0); Potassium 3.8 mmol/L (3.5-5.5); Total Bilirubin 0.4 mg/dL (0.2-1.2); VLDL Calculation 22.4 mg/dL (5.00-40.00)
[2021-05-30 04:01] LABS: Prostate Specific Antigen 0.5 ng/mL (0.0-6.5)
[2021-05-30 19:29] LABS: Urine Creatinine 92.5 mg/dL
[2021-05-30 20:56] LABS: Microalbumin Creatinine Ratio <30 mg/g Creat (0-30)
== END | disposition home or self-care (01) ==
LOC: LABWHC1 10:09
PROVIDERS: ATTEND Family Medicine
DX: Z00.01 Encounter for general adult medical examination with abnormal findings (principal); E11.65 Type 2 diabetes mellitus with hyperglycemia; E78.5 Hyperlipidemia, unspecified; E55.9 Vitamin D deficiency, unspecified
CPT/HCPCS: 36415; 80053; 80061; 82043; 82306; 82570; 83036; 84153; 85025

== ENCOUNTER → 2021-08-30 | Outpatient (CLI) | payer MEDICAID, MEDICARE ==
[2021-08-30 18:48] LABS: HCT 33.7 % (39.6-50.0); HGB 11.5 g/dL (13.0-17.0); MCH 32.6 pg (27.0-32.0); MCHC 34.1 g/dL (32.0-37.0); MCV 95.5 fL (80.0-97.0); Mean Platelet Volume 11.6 fL (9.5-12.2); Platelet Count 163 X 10*3/uL (140-440); RBC 3.53 X 10*6/uL (4.40-5.60); RDW 14.7 % (11.5-14.5); WBC 4.94 X 10*3/uL (4.50-10.00)
[2021-08-30 21:00] LABS: African American GFR (CKD) 61.8 (60.0-200.0); Anion Gap 12.2 mmol/L (4.00-12.00); BUN/Creat Ratio 24.5 Ratio (12.00-20.00); Blood Urea Nitrogen 29.4 mg/dL (9.0-27.0); Calcium 9.5 mg/dL (8.7-10.3); Carbon Dioxide 23.2 mmol/L (21.6-31.8); Chol/HDL Ratio 3.64 Ratio; HDL Cholesterol 41.8 mg/dL (40.00-60.00); LDL Cholesterol,Calculated 87.8 mg/dL (0.0-131.0); Non-African American GFR(CKD) 53.3 (60.0-200.0); Potassium 4.1 mmol/L (3.5-5.5); VLDL Calculation 22.4 mg/dL (5.00-40.00)
== END | disposition home or self-care (01) ==
LOC: LABWHC1 12:34
PROVIDERS: ATTEND Family Medicine
DX: E11.65 Type 2 diabetes mellitus with hyperglycemia (principal); I10 Essential (primary) hypertension; E78.5 Hyperlipidemia, unspecified; E55.9 Vitamin D deficiency, unspecified
CPT/HCPCS: 36415; 80048; 80061; 82306; 83036; 84450; 84460; 85027